=== PATIENT | male | born 1950 | race Caucasian/White ===

== ENCOUNTER 2018-03-07 02:07 | Observation (INO) ==
--- NOTE | 2018-03-07 03:04 | ED ---
HPI General Chief Complaint: Chest Pain Stated Complaint: Breast pain Time Seen by Provider: 03/07/18 02:57 Source: patient Mode of arrival: ambulatory Limitations: no limitations History of Present Illness HPI narrative: 67-year-old male presents to the emergency department by private transportation for evaluation of right-sided chest pain since morning. Patient states discomfort has been persistent 3-4/10 in intensity is not worsened by respiratory effort or movement. Patient is concerned his discomfort has not resolved. Patient is unable to identify any dietary indiscretion well water ingestion or foreign travel or dietary intake to precipitate symptoms. Patient said no fever no chills no nausea no vomiting no shortness of breath no sweats no referred back or abdominal pain but has noted radiation into the right neck and right subscapular area. Patient denies any abdominal pain. Patient denies history of biliary colic or gallbladder disease. No prior history of peptic ulcer disease or gastritis and no known history of pancreatitis. Patient is visiting from [place] and states that he has hypertension dyslipidemia and diabetes does not smoke cigarettes and has no known coronary vessel disease has had an normal stress test a year ago has known valvular heart disease as detected by echo and is followed annually without plan for valve replacement according to the patient. Patient has been here 1 week. Patient denies other concerns or complaints. Patient is unable to identify exacerbating or alleviating factors. MD complaint: chest pain Complete Quality Measures for STEMI Alert Patients STEMI Alert: No Onset (ago): day(s) Duration: constant Onset: awoke with symptoms Pain location: right chest Severity: mild Quality: tightness and dull Pain radiation: RUE and back Relieving factors: nothing Exacerbating factors: nothing Context: recent travel Treatments prior to arrival chest pain: none Related Data Home Medications Medication Instructions Recorded Confirmed amlodipine 10 mg PO DAILY 03/07/18 03/07/18 atorvastatin 10 mg PO DAILY 03/07/18 03/07/18 empagliflozin [Jardiance] 10 mg PO DAILY 03/07/18 03/07/18 losartan 50 mg PO DAILY 03/07/18 03/07/18 metformin 500 mg PO QID 03/07/18 03/07/18 Allergies Allergy/AdvReac Type Severity Reaction Status Date / Time No Known Allergies Allergy Unverified 03/07/18 02:15 Review of Systems ROS: all other systems reviewed are negative [facility] Medical History Medical History Diabetes (Acute) HTN (hypertension) (Acute) Hypercholesteremia (Acute) Social History Social History Substance History: No History of Abuse Second Hand Smoke Exposure: No Smoking Status: Never smoker How Often Do You Have a Drink Containing Alcohol: Monthly or less Recent Travel in [facility] within the Last 8 Weeks: No Recent Out of Country Travel within the Last 8 Weeks: No Immunization History Tetanus Immunization: <5 Years Hx Influenza Vaccine This Season: Yes Exam Narrative Exam Narrative: GENERAL: Well-nourished, well-developed patient. SKIN: Focused skin assessment warm/dry. HEAD: Normocephalic. EYES: No scleral icterus. No injection or drainage. NECK: Supple, trachea midline. No JVD or lymphadenopathy. CARDIOVASCULAR: Regular rate and rhythm without murmurs, gallops, or rubs. RESPIRATORY: Breath sounds equal bilaterally. No accessory muscle use. GASTROINTESTINAL: Abdomen soft, non-tender, nondistended. MUSCULOSKELETAL: No cyanosis, or edema. BACK: Nontender without obvious deformity. No CVA tenderness. Course Initial Documented Vital Signs Temperature 97.8 F 03/07/18 02:17 Pulse Rate 67 03/07/18 02:17 Respiratory Rate 18 03/07/18 02:17 Blood Pressure 202/94 H 03/07/18 02:17 Pulse Oximetry 97 03/07/18 02:17 Last Documented Vital Signs Temperature 97.8 F 03/07/18 02:17 Pulse Rate 70 03/07/18 03:30 Respiratory Rate 18 03/07/18 03:30 Blood Pressure 141/66 H 03/07/18 03:30 Pulse Oximetry 95 03/07/18 03:30 Medical Decision Making MDM Narrative Medical decision making narrative: 67-year-old male with history of hypertension dyslipidemia diabetes presents to the emergency department with 1 day of persistent constant 3-4/10 intensity right-sided chest discomfort dullness tightness that radiates to the right shoulder and right subscapular region and right neck. No fever no chills no nausea no vomiting no injury no paresthesias no weakness. No abdominal pain or history of peptic ulcer disease gallbladder disease or pancreatitis. Patient is unable to identify exacerbating or alleviating factors. EKG is sinus rhythm rate 60 nonspecific T- wave changes no acute ST elevation injury pattern or ectopy noted patient placed on cardiac surgeon with continuous pulse oximetry IV access obtained specimens collected and sent for resulting patient ordered to receive aspirin 162 mg 1 dose and sublingual nitroglycerin 0.4 mg every 5 minutes 3 doses as needed for chest pain to hold for systolic blood pressure less than or equal to 10 5 mmHg or chest pain-free. Patient chest pain-free after 2 sublingual nitroglycerin. Troponin I and CK are not elevated D-dimer is elevated [place] vague right -sided chest discomfort radiating sub-subscapular will obtain CT pulmonary angiogram to exclude pulmonary embolism; if CT imaging study is unremarkable reveals no acute process to explain patient's symptoms will admit the chest pain center per protocol second set CK troponin I and EKG are due 6:[address] pulmonary angiogram negative for PE patient does take metformin and patient is educated and informed not to take any metformin for greater than 48 hours after receiving IV contrast which was administered at 5 AM 03/07/18 so therefore no metformin until after 03/09/18 Medical Screen Exam Complete: Yes Emergency Medical Condition: Yes Differential Diagnosis Differential Diagnosis: Chest pain, atypical chest pain, PE, pleurisy, costochondritis, ACS, OR, aortic dissection, biliary colic, pancreatitis, gastritis, peptic ulcer disease Medical Records Medical records reviewed: Yes I reviewed the patient's medical records. No prior visits Lab Data Result diagrams: 03/07/18 03:24 03/07/18 03:24 Lab Results 03/07/18 03/07/18 03/07/18 Range/Units 03:24 03:24 03:24 WBC 7.9 (4.0-11.0) th/mm3 RBC 5.65 (4.50-5.90) mil/mm3 Hgb 17.4 H (13.0-17.0) gm/dL Hct 49.6 (39.0-51.0) % MCV 87.7 (80.0-100.0) fL MCH 30.8 (27.0-34.0) pg MCHC 35.1 (32.0-36.0) % RDW 13.5 (11.6-17.2) % Plt Count 183 (150-450) th/mm3 MPV 9.3 (7.0-11.0) fL Neut % (Auto) 55.7 (16.0-70.0) % Lymph % (Auto) 31.2 (9.0-44.0) % [place] % (Auto) 8.7 H (0.0-8.0) % Eos % (Auto) 3.6 (0.0-4.0) % Baso % (Auto) 0.8 (0.0-2.0) % Neut # (Auto) 4.4 (1.8-7.7) th/mm3 Lymph # (Auto) 2.5 (1.0-4.8) th/mm3 [place] # (Auto) 0.7 (0.0-0.9) th/mm3 Eos # (Auto) 0.3 (0.0-0.4) th/mm3 Baso # (Auto) 0.1 (0.0-0.2) th/mm3 WBC Differential . Differential Comment Auto diff final PT 10.0 (9.8-11.6) sec INR 1.0 Ratio APTT 27.5 (24.3-30.1) sec D-Dimer Quant (PE/DVT) (0.00-0.50) mg/L FEU Sodium 138 (136-145) meq/L Potassium 3.7 (3.5-5.1) meq/L Chloride 100 (98-107) meq/L Carbon Dioxide 26.0 (21.0-32.0) meq/L Anion Gap 12 (5-15) meq/L BUN 22 H (7-18) mg/dL Creatinine 1.24 (0.60-1.30) mg/dL Estimated GFR 58 L (>89) mL/min Random Glucose 145 H (74-106) mg/dL Calcium 8.8 (8.5-10.1) mg/dL Magnesium 2.0 (1.5-2.5) mg/dL Total Bilirubin 0.7 (0.2-1.0) mg/dL AST 56 H (15-37) U/L ALT 60 (12-78) U/L Alkaline Phosphatase 97 (45-117) U/L Total Creatine Kinase 342 H (39-308) U/L CK-MB (CK-2) 3.1 (0.5-3.6) ng/mL CK-MB (CK-2) % 0.9 (0.0-4.0) % Troponin I Less than 0.02 L (0.02-0.05) ng/mL Total Protein 8.1 (6.4-8.2) g/dL Albumin 3.9 (3.4-5.0) g/dL Lipase 116 (73-393) U/L 03/07/18 03/07/18 Range/Units 03:24 06:33 WBC (4.0-11.0) th/mm3 RBC (4.50-5.90) mil/mm3 Hgb (13.0-17.0) gm/dL Hct (39.0-51.0) % MCV (80.0-100.0) fL MCH (27.0-34.0) pg MCHC (32.0-36.0) % RDW (11.6-17.2) % Plt Count (150-450) th/mm3 MPV (7.0-11.0) fL Neut % (Auto) (16.0-70.0) % Lymph % (Auto) (9.0-44.0) % [place] % (Auto) (0.0-8.0) % Eos % (Auto) (0.0-4.0) % Baso % (Auto) (0.0-2.0) % Neut # (Auto) (1.8-7.7) th/mm3 Lymph # (Auto) (1.0-4.8) th/mm3 [place] # (Auto) (0.0-0.9) th/mm3 Eos # (Auto) (0.0-0.4) th/mm3 Baso # (Auto) (0.0-0.2) th/mm3 WBC Differential Differential Comment PT (9.8-11.6) sec INR Ratio APTT (24.3-30.1) sec D-Dimer Quant (PE/DVT) 0.63 H (0.00-0.50) mg/L FEU Sodium (136-145) meq/L Potassium (3.5-5.1) meq/L Chloride (98-107) meq/L Carbon Dioxide (21.0-32.0) meq/L Anion Gap (5-15) meq/L BUN (7-18) mg/dL Creatinine (0.60-1.30) mg/dL Estimated GFR (>89) mL/min Random Glucose (74-106) mg/dL Calcium (8.5-10.1) mg/dL Magnesium (1.5-2.5) mg/dL Total Bilirubin (0.2-1.0) mg/dL AST (15-37) U/L ALT (12-78) U/L Alkaline Phosphatase (45-117) U/L Total Creatine Kinase 258 (39-308) U/L CK-MB (CK-2) (0.5-3.6) ng/mL CK-MB (CK-2) % (0.0-4.0) % Troponin I Less than 0.02 L (0.02-0.05) ng/mL Total Protein (6.4-8.2) g/dL Albumin (3.4-5.0) g/dL Lipase (73-393) U/L Imaging Data Radiologist's impression: Chest X-Ray 03/07/18 02:57 CONCLUSION: The lungs are clear. Chest CTA 03/07/18 05:00 CONCLUSION: 1. This study is negative for pulmonary embolism. ECG Data EKG Prior to Arrival: No Prior ECG tracings: not available for review Interpretation: EKG normal sinus rhythm rate [address] elevation injury pattern or ectopy normal axis and intervals Discharge Plan Discharge Disposition Patient Disposition: 30 Still Patient Discharge Condition Condition: Stable Discharge Details Diagnosis: Chest pain Physicians Team ED Provider: Shelly Chew Primary Care Provider: Primary Care Shayla,Lisa Attending Provider: Manisha George ED Status: Admitted Observation Patient
[2018-03-07] MEDS: Sod Chloride 0.9% Inj 1,000 ML IV.CONT SCH ×2 (03:15→13:33)
[2018-03-07 03:37] LABS: Baso # (Auto) 0.1 th/mm3 (0.0-0.2); Baso % (Auto) 0.8 % (0.0-2.0); Eos # (Auto) 0.3 th/mm3 (0.0-0.4); Eos % (Auto) 3.6 % (0.0-4.0); Hematocrit 49.6 % (39.0-51.0); Hemoglobin 17.4 gm/dL (13.0-17.0); Lymph # (Auto) 2.5 th/mm3 (1.0-4.8); Lymph % (Auto) 31.2 % (9.0-44.0); Mean Corpuscular HGB Conc 35.1 % (32.0-36.0); Mean Corpuscular Hemoglobin 30.8 pg (27.0-34.0); Mean Corpuscular Volume 87.7 fL (80.0-100.0); Mean Platelet Volume 9.3 fL (7.0-11.0); Mono # (Auto) 0.7 th/mm3 (0.0-0.9); Mono % (Auto) 8.7 % (0.0-8.0); Neut # (Auto) 4.4 th/mm3 (1.8-7.7); Neut % (Auto) 55.7 % (16.0-70.0); Platelet Count 183 th/mm3 (150-450); Red Blood Count 5.65 mil/mm3 (4.50-5.90); Red Cell Distribution Width 13.5 % (11.6-17.2); White Blood Count 7.9 th/mm3 (4.0-11.0)
[2018-03-07 03:46] LABS: Activated Partial Thrombo Time 27.5 sec (24.3-30.1)
--- NOTE | 2018-03-07 03:48 | XR ---
EXAM DATE: 03/07/2018 3:40 AM EDT AGE/SEX: 67 years / Male INDICATIONS: Right sided chest pain starting today CLINICAL DATA: This is the patient's initial encounter. Patient reports that signs and symptoms have been present for 1 day and indicates a pain score of 6/10. MEDICAL/SURGICAL HISTORY: None. None. COMPARISON: No prior exams available for comparison. FINDINGS: A single AP view of the chest demonstrates the lungs to be symmetrically aerated without evidence of mass, infiltrate or effusion. No evidence of pneumothorax. The cardiomediastinal contours are unrema rkable. Osseous structures are intact. CONCLUSION: The lungs are clear. Electronically signed by: Bud Smith MD 03/07/2018 3:47 AM EDT
[2018-03-07 04:00] LABS: Alanine Aminotransferase 60 U/L (12-78); Albumin 3.9 g/dL (3.4-5.0); Anion Gap 12 meq/L (5-15); Aspartate Aminotransferase 56 U/L (15-37); Blood Urea Nitrogen 22 mg/dL (7-18); Calcium 8.8 mg/dL (8.5-10.1); Chloride 100 meq/L (98-107); Glomerular Filtration Rate 58 mL/min (>89); Glucose,Random 145 mg/dL (74-106); Lipase 116 U/L (73-393); Potassium 3.7 meq/L (3.5-5.1); Sodium 138 meq/L (136-145)
[2018-03-07 04:11] LABS: Alkaline Phosphatase 97 U/L (45-117); Creatine Kinase 342 U/L (39-308); Total Protein 8.1 g/dL (6.4-8.2)
[2018-03-07 04:23] LABS: CKMB Percent 0.9 % (0.0-4.0); Creatine Kinase MB 3.1 ng/mL (0.5-3.6)
--- NOTE | 2018-03-07 06:19 | CT ---
EXAM DATE: 03/07/2018 6:05 AM EDT AGE/SEX: 67 years / Male INDICATIONS: Right side chest pain. CLINICAL DATA: This is the patient's initial encounter. Patient reports that signs and symptoms have been present for 1 day and indicates a pain score of 4/10. MEDICAL/SURGICAL HISTORY: Hypertension. Diabetes. None. RADIATION DOSE: 10.83 CTDI (mGy) COMPARISON: C, CHEST 1V SINGLE AP, 03/07/2018. . TECHNIQUE: Volumetric scanning was performed using a multi-row detector CT scanner during bolus infu areli of 75 ml Omnipaque 350 (iohexol) nonionic water-soluble contrast as a single exam dose. The wilfredo a was post processed with a variety of visualization algorithms including full volume maximum intensi ty projection and sliding thin slab reformation. Using automated exposure control and adjustment of t he mA and/or kV according to patient size, radiation dose was kept as low as reasonably achievable to obtain optimal diagnostic quality images. DICOM format image data is available electronically for r eview and comparison. FINDINGS: Pulmonary Arteries: No filling defects are seen in the pulmonary arteries out to the subsegmental ve ssels. The left and right pulmonary arteries are normal in diameter. Lung: No infiltrates seen. Effusion: None. Mediastinum: No evidence of mediastinal or hilar adenopathy. Coronary artery calcifications. Other: The axilla is unremarkable. CONCLUSION: 1. This study is negative for pulmonary embolism. Electronically signed by: Bud Smith MD 03/07/2018 6:18 AM EDT
[2018-03-07] MEDS ORDERED: Hold Metfromin until further notice OTHER ONE (06:26)
[2018-03-07] MEDS ORDERED: Sod Chloride 0.9% Inj 1,000 ML IV.CONT SCH (06:30)
[2018-03-07 07:22] LABS: Creatine Kinase 258 U/L (39-308)
[2018-03-07] MEDS ORDERED: Acetaminophen 500 MG Tablet PO PRN (07:35)
[2018-03-07 08:13] VITALS: TEMP 98
[2018-03-07] MEDS: Insulin NovoLIN Regular Correctional Sugar Inj SQ SCH ×2 (08:49→13:33)
[2018-03-07] MEDS ORDERED: Aspirin 325 MG Tablet PO SCH (09:00)
[2018-03-07] MEDS ORDERED: amLODIPine 10 MG Tablet PO SCH (09:00)
--- NOTE | 2018-03-07 10:26 | P.HPCA ---
History of Present Illness Primary Care Physician: No Primary Care Physician Chief Complaint: Chest pain History of Present Illness: This is a 67-year-old male with history of hypertension, hyperlipidemia, diabetes that presents to ED with complaint of chest discomfort. Patient states he has had a constant right-sided chest discomfort 2 days. Really has found nothing in particular to worsen. States it begins in the shoulder wraps around to the right side of his chest. Denies shortness of breath, nausea, or diaphoresis. Cannot think of anything and it causes discomfort. Denies other type of back discomforts. Denies any other type of chest discomfort. Denies abdominal discomfort. Denies recent illness. He is here vacation from [place] and has been here for about a week. Admits to not taking his blood pressure medicine regularly since being on vacation. He takes metformin for his diabetes and and that will have to be held for 2 days as he had a CTA in the ED. States he is unaware of that. States he has had stress test in the past and the most recent was about 1 year ago. States they have been normal. Denies family history of CAD. Patient states is a lifetime non-smoker. Has history of hypertension, hyperlipidemia, diabetes states he really has not been completely compliant since being on vacation with these medications. States he takes losartan, amlodipine, metformin, atorvastatin, and Jardiance. - Diagnosis (1) Chest pain (2) Hypertension (3) Hyperlipidemia (4) Diabetes Review of Systems General: Patient denies fevers, chills, and recent travel. HEENT: Patient denies headache, sore throat, difficulty swallowing. Cardiovascular: Has the chest discomfort as mentioned above. Denies sensation of heart beating rapidly or irregularly. No syncope. Denies diaphoresis. Respiratory: Denies shortness of breath or inspirational chest discomfort. Denies coughing wheezing or hemoptysis. GI: Patient denies nausea, vomiting, diarrhea, abdominal pain, bloody stools. Musculoskeletal: Patient denies joint pain or edema. Denies calf pain or edema. Neurovascular: Patient denies numbness, tingling, weakness in extremities. Denies headache. Endocrine: Denies polyuria and polydipsia. Hematologic: Denies easy bruising. Skin: Denies rash or itching. PMFSH - Medical History Medical History: Medical History (Last Reviewed 03/07/18 @ 03:02 by Shelly Chew MD) Diabetes HTN (hypertension) Hypercholesteremia - Tobacco History Second Hand Smoke Exposure: No Smoking Status: Never smoker - Alcohol History How Often Do You Have a Drink Containing Alcohol: Monthly or less - Substance Use History Substance History: No History of Abuse - Travel History Recent Travel in the [place] Within the Last 8 Weeks: No Recent Travel Out of the Country Within the Last 8 Weeks: No - Immunization History Tetanus Immunization: <5 Years Hx Influenza Vaccine This Season: Yes Medications and Allergies Active Medications: Active Medications Acetaminophen (Tylenol) 500 mg PO Q6H PRN PRN Reason: pain scale 1-5 Albuterol (Duoneb Neb (Prn)) 1 ampul NEB Q4HR NEB PRN PRN Reason: SHORTNESS OF BREATH/WHEEZING Amlodipine Besylate (Norvasc) 10 mg PO DAILY [facility] Last Admin: 03/07/18 08:40 Dose: 10 mg Aspirin (Aspirin) 325 mg PO DAILY [facility] Last Admin: 03/07/18 08:40 Dose: 325 mg Atorvastatin Calcium (Lipitor) 10 mg PO DAILY [facility] Last Admin: 03/07/18 08:40 Dose: 10 mg Clonidine HCl (Catapres) 0.1 mg PO Q6H PRN PRN Reason: SBP >165 OR DBP > 110 Sodium Chloride (Ns Inj) 1,000 mls @ 100 mls/hr IV.CONT .Q10H [facility] Last Admin: 03/07/18 03:15 Dose: 100 mls/hr Sodium Chloride (Ns Inj) 1,000 mls @ 100 mls/hr IV.CONT .Q10H [facility] Last Admin: 03/07/18 06:39 Dose: Not Given Insulin Human Regular (Novolin R Correctional Sugar Inj) 0 units SQ ACHS [facility]; Protocol Last Admin: 03/07/18 08:49 Dose: Not Given Losartan Potassium (Cozaar) 50 mg PO DAILY [facility] Last Admin: 03/07/18 08:40 Dose: 50 mg Nitroglycerin (Nitrostat Sl) 0.4 mg SL Q5M PRN PRN Reason: CHEST PAIN Ondansetron HCl (Zofran Inj) 4 mg IV.PUSH Q6H PRN PRN Reason: NAUSEA Sodium Chloride (Ns Flush) 2 ml IV.FLUSH UNSCH PRN PRN Reason: FLUSH AFTER USING IV ACCESS Sodium Chloride (Ns Flush) 2 ml IV.FLUSH BID [facility] Last Admin: 03/07/18 08:49 Dose: Not Given Sodium Chloride (Ns Flush) 2 ml IV.FLUSH PRN PRN PRN Reason: FLUSH AFTER USING IV ACCESS Allergies Allergy/AdvReac Type Severity Reaction Status Date / Time No Known Allergies Allergy Unverified 03/07/18 02:15 Home Medications Medication Instructions Recorded Confirmed Type amlodipine 10 mg PO DAILY 03/07/18 03/07/18 History atorvastatin 10 mg PO DAILY 03/07/18 03/07/18 History empagliflozin [Jardiance] 10 mg PO DAILY 03/07/18 03/07/18 History losartan 50 mg PO DAILY 03/07/18 03/07/18 History metformin 500 mg PO QID 03/07/18 03/07/18 History Exam Vital signs: Vital Signs 03/07/18 02:17 03/07/18 02:19 03/07/18 03:16 Temperature 97.8 F Pulse Rate 67 69 Respiratory Rate 18 18 Blood Pressure 202/94 H 224/98 H 152/67 H Pulse Oximetry 97 95 03/07/18 03:30 03/07/18 08:00 Temperature 98.0 F Pulse Rate 70 55 L Respiratory Rate 18 19 Blood Pressure 141/66 H 145/82 H Pulse Oximetry 95 97 Intake & Output 03/06/18 03/07/18 03/07/18 18:59 06:59 18:59 Weight 120.202 kg Narrative: GENERAL: This is a well-nourished, well-developed patient, in no apparent distress. Patient speaks in clear complete sentences. Patient is pleasant. HEENT: Head is atraumatic and normocephalic. Neck is supple without lymphadenopathy and trachea is midline. No JVD or carotid bruits. CARDIOVASCULAR: Regular rate and rhythm without murmurs, gallops, or rubs. RESPIRATORY: Clear to auscultation. Breath sounds equal bilaterally. No wheezes , rales, or rhonchi. Chest wall is nontender. No use of accessory muscles. GASTROINTESTINAL: Abdomen is nontender, nondistended. Abdomen soft. No obvious pulsatile mass or bruit. No CVA tenderness. Strong femoral pulses bilaterally. Normal bowel sounds in all quadrants. MUSCULOSKELETAL: Patient is moving upper and lower extremities freely. No calf tenderness or edema, no Homans sign. Strong pulses in upper and lower extremities. NEUROLOGICAL: Patient is alert and oriented. Cranial nerves 2-12 are grossly intact. No focal deficits and speech is clear. SKIN: No rash and turgor is normal. Results 03/07/18 03:24 03/07/18 03:24 Cardiac Enzymes 03/07/18 03/07/18 Range/Units 03:24 06:33 AST 56 H (15-37) U/L CK-MB (CK-2) 3.1 (0.5-3.6) ng/mL Troponin I Less than 0.02 L Less than 0.02 L (0.02-0.05) ng/mL Coagulation 03/07/18 Range/Units 03:24 PT 10.0 (9.8-11.6) sec APTT 27.5 (24.3-30.1) sec CBC 03/07/18 Range/Units 03:24 WBC 7.9 (4.0-11.0) th/mm3 RBC 5.65 (4.50-5.90) mil/mm3 Hgb 17.4 H (13.0-17.0) gm/dL Hct 49.6 (39.0-51.0) % Plt Count 183 (150-450) th/mm3 Neut # (Auto) 4.4 (1.8-7.7) th/mm3 Lymph # (Auto) 2.5 (1.0-4.8) th/mm3 [place] # (Auto) 0.7 (0.0-0.9) th/mm3 Eos # (Auto) 0.3 (0.0-0.4) th/mm3 Baso # (Auto) 0.1 (0.0-0.2) th/mm3 Comprehensive Metabolic Panel 03/07/18 Range/Units 03:24 Sodium 138 (136-145) meq/L Potassium 3.7 (3.5-5.1) meq/L Chloride 100 (98-107) meq/L Carbon Dioxide 26.0 (21.0-32.0) meq/L BUN 22 H (7-18) mg/dL Creatinine 1.24 (0.60-1.30) mg/dL Calcium 8.8 (8.5-10.1) mg/dL AST 56 H (15-37) U/L ALT 60 (12-78) U/L Alkaline Phosphatase 97 (45-117) U/L Total Protein 8.1 (6.4-8.2) g/dL Albumin 3.9 (3.4-5.0) g/dL Intake and Output 03/06/18 03/07/18 03/07/18 22:59 06:59 14:59 Other: Weight 120.202 kg EKG interpretations - EKG EKG shows: sinus rhythm (EKGs are sinus rhythm with nonspecific T-wave changes.) Caprini VTE Risk Assessment Caprini VTE Risk Assessment: Moderate/High Risk (score >= 2) Caprini Risk Assessment Model: Point Value = 1 Point Value = 2 Point Value = 3 Point Value = 5 Age 41-60 Minor surgery BMI > 25 kg/m2 Swollen legs Varicose veins or History of unexplained or recurrent spontaneous Oral contraceptives or hormone replacement Sepsis (< 1 month) Serious lung disease, including pneumonia (< 1 month) Abnormal pulmonary function Acute myocardial infarction Congestive heart failure (< 1 month) History of inflammatory bowel disease Medical patient at bed rest Age 61-74 Arthroscopic surgery Major open surgery (> 45 min) Laparoscopic surgery (> 45 min) Malignancy Confined to bed (> 72 hours) Immobilizing plaster cast Central venous access Age >= 75 History of VTE Family history of VTE Factor V Leiden Prothrombin [id number] Lupus anticoagulant Anticardiolipin antibodies Elevated serum homocysteine Heparin-induced thrombocytopenia Other congenital or acquired thrombophilia Stroke (< 1 month) Elective arthroplasty Hip, pelvis, or leg fracture Acute spinal cord injury (< 1 month) Prophylaxis Regimen: Total Risk Factor Score Risk Level Prophylaxis Regimen 0-1 Low Early ambulation 2 Moderate Order ONE of the following: *Sequential Compression Device (SCD) *Heparin 5000 units SQ BID 3-4 Higher Order ONE of the following medications: *Heparin 5000 units SQ TID *Enoxaparin/Lovenox 40 mg SQ daily (WT < 150 kg, CrCl > 30 mL/min) *Enoxaparin/Lovenox 30 mg SQ daily (WT < 150 kg, CrCl > 10-29 mL/min) *Enoxaparin/Lovenox 30 mg SQ BID (WT < 150 kg, CrCl > 30 mL/min) AND/OR *Sequential Compression Device (SCD) 5 or more Highest Order ONE of the following medications: *Heparin 5000 units SQ TID (Preferred with Epidurals) *Enoxaparin/Lovenox 40 mg SQ daily (WT < 150 kg, CrCl > 30 mL/min) *Enoxaparin/Lovenox 30 mg SQ daily (WT < 150 kg, CrCl > 10-29 mL/min) *Enoxaparin/Lovenox 30 mg SQ BID (WT < 150 kg, CrCl > 30 mL/min) AND *Sequential Compression Device (SCD) Assessment and Plan - Assessment (1) Chest pain Code(s): R07.9 - Chest pain, unspecified Status: Acute (2) Hypertension Code(s): I10 - Essential (primary) hypertension Status: Acute (3) Hyperlipidemia Code(s): E78.5 - Hyperlipidemia, unspecified Status: Acute (4) Diabetes Code(s): E11.9 - Type 2 diabetes mellitus without complications Status: Acute - Plan * Chest pain: Patient has had serial cardiac enzymes and EKGs for ruling out purposes. He was seen by Dr. George cardiology in the chest pain center. He will undergo a nuclear ETT. He will be discharged home if stress is a nonischemic with instructions to follow-up with PCP. Return to ED for interval issues. * Hypertension: Continue medication. * Hyperlipidemia: Continue medication. * Diabetes: He needs to hold his metformin for 2 days as he had a CTA yesterday. Will cover with sliding scale insulin coverage. Patient has been counseled on the importance of using a diabetic diet. Patient stable at this time and he is agreeable to this plan.
[2018-03-07 10:52] LABS: Creatine Kinase 265 U/L (39-308)
[2018-03-07] MEDS ORDERED: Regadenoson Inj 0.4 MG/5 ML Syringe IV.PUSH ONE (11:25)
--- NOTE | 2018-03-07 13:27 | NM ---
EXAM DATE: 03/07/2018 1:21 PM EDT AGE/SEX: 67 years / Male INDICATIONS: Angina. . Right chest pain. CLINICAL DATA: This is the patient's initial encounter. Patient reports that signs and symptoms have been present for 1 day and indicates a pain score of 4/10. MEDICAL/SURGICAL HISTORY: Diabetes mellitus type II. Hypercholesterolemia. Hypertension. None . COMPARISON: No prior exams available for comparison. DOSE: 11 mCi Tc 99m Myoview at rest 35 mCi [id number] at stress REST HEART RATE: 71 BPM TARGET HEART RATE: 130 BPM MAX HEART RATE: 136 BPM REST BLOOD PRESSURE: 138/82 mmHg MAX BLOOD PRESSURE: 148/78 mmHg EJECTION FRACTION: 65 % TECHNIQUE: The patient underwent upright treadmill exercise in the chest pain center. Continuous EC G tracing was monitored during stress. Gated SPECT imaging was performed after stress, and conventio nal SPECT imaging was performed at rest. The examination was performed on a SPECT/CT scanner, both a ttenuation-corrected and non-corrected datasets were reviewed. FINDINGS: Distribution: The maximum perfused segment at stress is in the septal wall. Perfusion: The pattern of perfusion at stress is within normal limits. Gated Study: There are intact wall motion and wall thickening without hypokinetic or dyskinetic segme nts. The ejection fraction is calculated at 65%. RISK CATEGORY: Low (<1% Annual Motality Rate) CONCLUSION: Unremarkable myocardial perfusion. Electronically signed by: Neil Carroll MD 03/07/2018 1:26 PM EDT
[2018-03-07 13:29] VITALS: BP 142/73; PULSE 73; RESP 18; O2SAT 95
--- NOTE | 2018-03-07 13:43 | ECG ---
Date Performed: 03/07/2018 Time Performed: 02:23:56 PTAGE: 67 years EKG: Sinus rhythm NONSPECIFIC T-WAVE ABNORMALITY BORDERLINE ECG NO PREVIOUS TRACING DOCTOR: Cristina Patino Interpretating Date/Time 03/07/2018 13:41:43
--- NOTE | 2018-03-07 13:56 | ECG ---
Date Performed: 03/07/2018 Time Performed: 06:36:48 PTAGE: 67 years EKG: SINUS BRADYCARDIA WITH FIRST DEGREE AV BLOCK NONSPECIFIC T-WAVE ABNORMALITY ABNORMAL ECG Si nce the PREVIOUS TRACING , no significant change noted PREVIOUS TRACING DOCTOR: Cristina Patino Interpretating Date/Time 03/07/2018 13:53:49
--- NOTE | 2018-03-07 16:26 | TR ---
Date Performed: 03/07/2018 Time Performed: 11:47:43 DOCTOR: Manisha George DRUG LIST: CLINICAL HISTORY: CHEST PAIN REASON FOR TEST: REASON FOR ENDING: OBSERVATION: CONCLUSION: NUCLEAR ETT. NO CP. MILD SOB.% Max HR Achieved=89.0% Maximum XX=021/78 Total Exercis e Time=8:20 COMMENTS: Non diagnostic ST changes. Nuclear protion reported seperately.
== END 2018-03-07 15:37 | disposition home or self-care (01) ==
LOC: NEDA 02:07 → NEPC 02:07 → NEPFCDU 07:45
PROVIDERS: ADMIT Internal Medicine Interventional Cardiology; ATTEND Internal Medicine Interventional Cardiology